=== PATIENT | female | born 2000 | race Caucasian/White ===

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

== ENCOUNTER 2019-01-28 04:13 | Emergency (ER) | payer OTHER ==
[2019-01-28 04:51] VITALS: BP 130/79
--- NOTE | 2019-01-28 14:54 | EKG REPORT ---
SEVERITY:- ABNORMAL ECG - SINUS RHYTHM RIGHT ATRIAL ABNORMALITY : Confirmed by: Miguel Angel Barron MD 28-Jan-2019 14:53:48
== END 2019-01-28 08:00 | disposition left against medical advice (07) ==
LOC: ER 04:13
DX: Z53.21 Procedure and treatment not carried out due to patient leaving prior to being seen by health care provider (principal)
CPT/HCPCS: 93005; 93010